=== PATIENT | male | born 1940 | race Caucasian/White ===

== ENCOUNTER 2024-12-24 09:29 | Outpatient (AMB) | payer OTHER, SELFPAY ==
[2024-12-24 09:42] VITALS: BP 166/104; PULSE 72; RESP 18; TEMP 36.5; O2SAT 97; BMI 29.5
--- NOTE | 2024-12-24 09:42 | PD.GSCLVISIT ---
Vital Signs - [facility] 12/24/24 09:42 Height 1.8 m Height Method Stated Weight 95.85 kg Weight Measurement Method Standing Scale BMI 29.5 BP 166/104 H Blood Pressure Source Automatic Cuff Blood Pressure Location Left Upper Arm Position Sitting Respiration 18 Pulse 72 Pulse Source Monitor Temp 97.7 F Temp Source Temporal Artery Scan Pulse Oximetry (%) 97 Oxygen Delivery Method Room Air Med/Allergies Allergies & Medications Allergies No Known Allergies Allergy (Verified 12/24/24 09:43) Medication Reconciliation Unobtainable 12/24/24 [History Confirmed 12/24/24] MA Intake Visit Data Collection New Patient or Established: Established Patient (seen at [facility] within 3 years) Seen by Clinical Staff ONLY (RN/MA): No Reason for Visit:: REFERRAL ADENOCARCINOMA OF COLON Pain Present Currently: No [employer] Required: No PCP or OBGYN visit in last 3 months: Yes Hx Now: No Do You Feel Safe at Home: Yes Authorities Contacted: N/A Smoking Status Smoking Status: Never smoker Immunization / Flu Flu Vaccine in the Last 12 Months: No Flu Vaccine Exclusion Criteria: Refused by Patient Past Medical History Social History SMOKING STATUS: Smoking status: Never smoker HPI HPI Narrative 84 year old male with pmh of colon adenocarcinoma presents to clinic with referral from insurance. Patient was unsure of why he was coming to today's visit. He stated that he had part of his sigmoid colon resected a little over a month ago by Dr. Montoya and did not follow up with him after the surgery. He states that he had a colostomy placed and it is not causing him any pain and is draining well. He has a PET scan scheduled for later today and has regular follow-ups with his oncologist. At this time, he is not aware of any need for further procedures. He explained that his surgeon Dr Montoya explained he would consider colostomy reversal in 6 months, and he is not aware of any barrier to following up with Dr Montoya ROS Review of Systems Systems Reviewed: All systems reviewed, normal except as documented Constitutional Constitutional: Denies poor appetite and Denies weakness Gastrointestinal Gastrointestinal: Denies abdominal pain, Denies change in bowel habits and Denies nausea Neurologic Neurologic: Denies weakness Objective/Exam General General Appearance: alert, in no apparent distress, comfortable and cooperative Resp Respiratory exam: Absent respiratory distress or accessory muscle use Assessment & Plan Diagnosis / Problem List (1) Colon adenocarcinoma: Assessment & Plan: 84 year old male with pmh of colon adenocarcinoma resected by Dr Montoya 10/2024, unclear as to why he was referred and pt is agreeable to following up with Dr Montoya for reversal, in the meantime is following up with oncology Advanced Care Planning Advance care planning discussed with:: patient Office Procedures GNS Level of Care Nursing/Assessment Patient Status: Initial/New Patient Nursing Assessment/Reassesment: Medication Reconciliation, Update PMH in EMR and Vital Signs Coordination of Care: Complex Care and Chronic Disease 1-5, Consent,records obtained, informed consent, Education Simp Pt/Fam, Results/Orders obtained and Staff clarify orders New Patient Charge New Patient Point Assignment: [id number] New Patient Point Charge: PER ASSESSMENT NURSE Level 3 ([id number]) Patient Portal Questionaires Social History Tobacco History Smoking Status: Never smoker Domestic Abuse History Do You Feel Safe at Home: Yes Review of Systems Report any current symptoms Only answer those that you have currently: General Complaints poor appetite: No weakness: No Digestive System abdominal pain: No change in bowel habits: No nausea: No Past Medical History Past Medical History Have you ever been diagnosed with any of the following:
== END 2024-12-24 10:12 | disposition home or self-care (01) ==
PROVIDERS: Supervising Provider Surgery; Visit Provider Surgery
DX: C18.9 Malignant neoplasm of colon, unspecified (principal)
CPT/HCPCS: 99203; G0463